=== PATIENT | male | born 1975 | race African-American/Black ===

== ENCOUNTER 2017-04-18 15:04 | Emergency (ER) | payer SELFPAY ==
[~2017-04-18] VITALS: Ht 185.4 cm; Wt 77.6 kg
[2017-04-18 15:56] LABS: HEMATOCRIT 45.2 % (39.2-51.8); HEMOGLOBIN 15.2 g/dL (13.7-18.0); WHITE BLOOD COUNT 6.1 x10^3/uL (3.4-10)
[2017-04-18 16:10] LABS: ASPARTATE AMINO TRANSFERASE 16 U/L (15-37); BLOOD UREA NITROGEN 6 mg/dL (7-18)
[2017-04-18 16:23] LABS: ACETAMINOPHEN < 2 mcg/mL (10-30)
[2017-04-18 22:19] VITALS: BP 124/79
== END 2017-04-18 22:29 | disposition home or self-care (01) ==
LOC: ED 20:10
DX: F10.220 Alcohol dependence with intoxication, uncomplicated (principal)
CPT/HCPCS: 36415; 80053; 80307; 80329; 85025; 93005; 99285; G0479; G0480

== ENCOUNTER 2017-05-20 19:25 | Emergency (ER) | payer OTHER ==
[~2017-05-20] VITALS: Ht 193 cm; Wt 73.3 kg
[2017-05-20 20:02] LABS: BLOOD UREA NITROGEN 10 mg/dL (7-18)
[2017-05-20 20:07] LABS: HEMATOCRIT 47.9 % (39.2-51.8); HEMOGLOBIN 16.1 g/dL (13.7-18.0); IS PT STATUS REG ER OR PRE ER? YES; WHITE BLOOD COUNT 5.1 x10^3/uL (3.4-10)
[2017-05-20 21:00] VITALS: BP 139/95
== END 2017-05-20 21:02 | disposition home or self-care (01) ==
LOC: ED 19:45
DX: R55 Syncope and collapse (principal)
CPT/HCPCS: 36415; 71020; 80048; 84484; 85025; 93005; 99285